=== PATIENT | male | born 1990 | race Asian ===

== ENCOUNTER 2019-04-22 07:27 | Emergency (ER) | payer SELFPAY ==
[~2019-04-22] VITALS: Ht 172.7 cm; Wt 63.5 kg
[2019-04-22] MEDS ORDERED: Lidocaine 1% 10mg/ml/Epi 0.005mg/ml 30ml vial INJ ONE (07:45)
[2019-04-22] MEDS ORDERED: Tetanus/Diptheria/Pertussis IM ONE (07:45)
--- NOTE | 2019-04-22 07:55 | NUR ---
ED Nurse Note: MD at bedside. Pt being taken to CT.
[2019-04-22 08:00] VITALS: BP 107/70
--- NOTE | 2019-04-22 08:00 | NUR ---
ED Nurse Note: Pt walked into ED w/ friend from home. Pt had laceration L side of head, unable to remember what happened. Friend found him at home after syncope, unknown how long for. Pt has 0/10 pain, no nausea, pt drowsy, a&ox4, eyes 2 mm PERRLA present. Pt set up on monitor.
[2019-04-22 08:06] LABS: BASOPHILS % (AUTO) 0.4 % (0.0-2.0); EOSINOPHILS % (AUTO) 0.2 % (0.0-3.0); HEMOGLOBIN 13.5 G/DL (14.2-18.0); LYMPHOCYTES % (AUTO) 16.1 % (20.0-45.0); MEAN CORPUSCULAR VOLUME 87 FL (80-99); MONOCYTES % (AUTO) 9.5 % (1.0-10.0); NEUTROPHILS % (AUTO) 73.8 % (45.0-75.0); PLATELET COUNT 192 K/UL (150-450); RED BLOOD COUNT 4.57 M/UL (4.70-6.10); WHITE BLOOD COUNT 6.8 K/UL (4.8-10.8)
[2019-04-22 08:10] LABS: ANION GAP 13 mmol/L (5-15); BLOOD UREA NITROGEN 22 mg/dL (7-18); CALCIUM 9.2 MG/DL (8.5-10.1); CARBON DIOXIDE 27 MMOL/L (21-32); CHLORIDE 101 MMOL/L (98-107); CREATININE 0.9 MG/DL (0.55-1.30); POTASSIUM 3.6 MMOL/L (3.5-5.1); SODIUM 141 MMOL/L (136-145)
--- NOTE | 2019-04-22 08:15 | Emergency Room Report ---
History of Present Illness General Chief Complaint: Altered Mental Status Source: Patient, Friend Present Illness HPI 28-year-old male presents with laceration to the left eyebrow, occurred 2 days ago, patient has been smoking some drug, he reports left head pain no aggravating leaving factors severity is mild, achy in nature, friend brings patient in for evaluation of his laceration. Allergies: Coded Allergies: No Known Allergies (Unverified , 04/22/19) Patient History Limited by: medical condition - Under the influence Past Medical History: see triage record Social History: Reports: drug use Reviewed Nursing Documentation: PMH: Agreed; PSxH: Agreed Nursing Documentation-[facility] Past Medical History: No Stated History Review of Systems All Other Systems: limited - Under the influence Physical Exam Vital Signs Date Time Temp Pulse Resp B/P (MAP) Pulse Ox O2 Delivery O2 Flow Rate FiO2 04/22/19 07:32 98.1 79 16 106/68 (81) 99 Room Air Sp02 EP Interpretation: reviewed, normal General Appearance: well appearing, no apparent distress, alert Head: normocephalic, other - 3 cm laceration above the left eyebrow Eyes: bilateral eye PERRL, bilateral eye EOMI ENT: uvula midline, moist mucus membranes Neck: supple, thyroid normal, supple/symm/no masses Respiratory: lungs clear, no respiratory distress, no retraction, no accessory muscle use Cardiovascular #1: normal peripheral pulses, regular rate, rhythm, no edema, no gallop, no murmur Gastrointestinal: non tender, soft, no guarding, no rebound Musculoskeletal: normal inspection Neurologic: alert, responsive, other - mildly confused Psychiatric: mood/affect normal Skin: no rash, warm/dry Procedures Critical Care Time Critical Care Time Given the critical condition in which the patient arrived, the patient was immediately assessed by myself and the nurse, and cardiac monitoring initiated due to the potential for rapid decompensation of the patient's clinical condition. During the course of the patient's stay, I spent a considerable amount of time at the bedside performing serial re-evaluations of the patient's hemodynamic and clinical status because of the recognized potential threat to life or limb in this condition. I then had a chance to review not only all of the available current laboratory and radiographic studies obtained today, but I also reviewed old records available to me at the time. Additionally, any ancillary information available including psychiatric specialist records were reviewed. Sequential vital signs were obtained. Critical Care time of 32 minutes was performed exclusive of billable procedures. Laceration/Wound Repair Laceration/Wound Repair : Consent: Verbal Wound Location: head Wound's Depth, Shape: superficial Wound Length (cm): 3 Wound Explored: clean Irrigated w/ Saline (ccs): 100 Betadine Prep?: Yes Anesthesia: Lidocaine w/ Epi Volume Anesthetic (ccs): 5 Wound Debrided: minimal Wound Repaired With: sutures Suture Size/Type: 5:0 Number of Sutures: 6 Patient Tolerated: Well Complications: None Medical Decision Making Diagnostic Impression: Primary Impression: Eyebrow laceration Qualified Codes: S01.112A - Laceration without foreign body of left eyelid and periocular area, initial encounter Additional Impressions: Drug abuse Spontaneous intraparenchymal intracranial hemorrhage, acute ER Course 28-year-old male presents with acute intoxication of unknown drug, patient is mildly altered however able to answer questions appropriately, he endorses smoking some drugs will not state what it was, friend is at bedside Differential diagnosis includes closed head injury, intracranial hemorrhage, drug abuse Laceration repaired, Tdap given, 1 L NS given Patient found to have an intracranial hemorrhage spoke with [facility] Dr. Carranza Who will accept patient Patient monitored multiple times, protecting airway. Patient remains stable will transfer patient to [facility] Laboratory Tests Test 04/22/19 07:30 04/22/19 08:30 White Blood Count 6.8 K/UL (4.8-10.8) Red Blood Count 4.57 M/UL (4.70-6.10) L Hemoglobin 13.5 G/DL (14.2-18.0) L Hematocrit 40.0 % (42.0-52.0) L Mean Corpuscular Volume 87 FL (80-99) Mean Corpuscular Hemoglobin 29.5 PG (27.0-31.0) Mean Corpuscular Hemoglobin Concent 33.7 G/DL (32.0-36.0) Red Cell Distribution Width 12.0 % (11.6-14.8) Platelet Count 192 K/UL (150-450) Mean Platelet Volume 7.0 FL (6.5-10.1) Neutrophils (%) (Auto) 73.8 % (45.0-75.0) Lymphocytes (%) (Auto) 16.1 % (20.0-45.0) L Monocytes (%) (Auto) 9.5 % (1.0-10.0) Eosinophils (%) (Auto) 0.2 % (0.0-3.0) Basophils (%) (Auto) 0.4 % (0.0-2.0) Sodium Level 141 MMOL/L (136-145) Potassium Level 3.6 MMOL/L (3.5-5.1) Chloride Level 101 MMOL/L (98-107) Carbon Dioxide Level 27 MMOL/L (21-32) Anion Gap 13 mmol/L (5-15) Blood Urea Nitrogen 22 mg/dL (7-18) H Creatinine 0.9 MG/DL (0.55-1.30) Estimate Glomerular Filtration Rate > 60 mL/min (>60) Glucose Level 160 MG/DL (74-106) H Calcium Level 9.2 MG/DL (8.5-10.1) Total Bilirubin 1.1 MG/DL (0.2-1.0) H Direct Bilirubin 0.3 MG/DL (0.0-0.3) Aspartate Amino Transferase (AST) 103 U/L (15-37) H Alanine Aminotransferase (ALT) 63 U/L (12-78) Alkaline Phosphatase 52 U/L (46-116) Total Protein 8.3 G/DL (6.4-8.2) H Albumin 4.2 G/DL (3.4-5.0) Globulin 4.1 g/dL Albumin/Globulin Ratio 1.0 (1.0-2.7) Prothrombin Time 11.1 SEC (9.30-11.50) Prothrombin Time INR 1.0 (0.9-1.1) PTT 26 SEC (23-33) Urine Opiates Screen Negative (NEGATIVE) Urine Barbiturates Screen Negative (NEGATIVE) Phencyclidine (PCP) Screen Negative (NEGATIVE) Urine Amphetamines Screen Positive (NEGATIVE) H Urine Benzodiazepines Screen Negative (NEGATIVE) Urine Cocaine Screen Negative (NEGATIVE) Urine Marijuana (THC) Screen Negative (NEGATIVE) CT/MRI/US Diagnostic Results CT/MRI/US Diagnostic Results : Impression Final Report EXAM: CT Head Without Intravenous Contrast CLINICAL HISTORY: PAIN TECHNIQUE: Axial computed tomography images of the head/brain without intravenous contrast. Coronal and sagittal images were obtained and reviewed. CTDI is 60 mGy and DLP is 1274 mGy-cm. One or more of the following dose reduction techniques were used: automated exposure control, adjustment of the mA and/or kV according to patient size, use of iterative reconstruction technique. COMPARISON: No relevant prior studies available. FINDINGS: Brain: 14 x 11 x 9 mm parenchymal hyperdensity in the left frontal lobe, concerning for a parenchymal hematoma/contusion. No associated mass effect, midline shift, or cerebral herniation. Remainder of the brain parenchyma appears unremarkable. Ventricles: Unremarkable. No ventriculomegaly. Bones/joints: Unremarkable. No depressed skull fracture. Soft tissues: Left forehead and periorbital soft tissue swelling. Sinuses: Mucosal opacification of the left frontal sinus. Remaining visualized paranasal sinuses appear clear. No sinus air-fluid levels. Mastoid air cells: Unremarkable as visualized. No mastoid effusion. IMPRESSION: 1. 14 x 11 x 9 mm parenchymal hyperdensity in the left frontal lobe, concerning for a parenchymal hematoma/contusion. No associated mass effect, midline shift, or cerebral herniation. 2. Left forehead and periorbital soft tissue swelling. 3. Mucosal opacification of the left frontal sinus. Radiologist: Shaji Brice MD Electronically Signed: 04/22/19 09:15 Study ready at 08:30 and initial results transmitted at 09:15 Communications: Clear Time Type Notes Call Doctor Intracranial Hemorrhage Last Vital Signs Date Time Temp Pulse Resp B/P (MAP) Pulse Ox O2 Delivery O2 Flow Rate FiO2 04/22/19 07:32 98.1 79 16 106/68 (81) 99 Room Air Disposition: XFER SHT-TRM HOSP Condition: Serious Scripts No Active Prescriptions or Reported Meds Additional Instructions: The patient was provided with discharge instructions, notified to follow-up with a primary care doctor and or specialist in the next 24-48 hours, and to return to the ED if they have worsening of their symptoms. Please note that this report is being documented using [employer] technology. This can lead to erroneous entry secondary to incorrect interpretation by the dictating instrument. PLEASE HAVE SUTURES REMOVED 04/27/2018 Dwayne Connell MD Apr 22, 2019 08:15
[2019-04-22 08:21] LABS: ALANINE AMINOTRANSFERASE 63 U/L (12-78); ALBUMIN 4.2 G/DL (3.4-5.0); ALKALINE PHOSPHATASE 52 U/L (46-116); ASPARTATE AMINO TRANSFERASE 103 U/L (15-37); BILIRUBIN,TOTAL 1.1 MG/DL (0.2-1.0)
[2019-04-22 08:27] LABS: BILIRUBIN,DIRECT 0.3 MG/DL (0.0-0.3)
--- NOTE | 2019-04-22 08:44 | NUR ---
ED Nurse Note: Dr Connell notified ST elevation on 3 lead. He states no new orders.
--- NOTE | 2019-04-22 09:16 | Diagnostic Imaging Report ---
EXAM: CT Head Without Intravenous Contrast CLINICAL HISTORY: PAIN TECHNIQUE: Axial computed tomography images of the head/brain without intravenous contrast. Coronal and sagittal images were obtained and reviewed. CTDI is 60 mGy and DLP is 1274 mGy-cm. One or more of the following dose reduction techniques were used: automated exposure control, adjustment of the mA and/or kV according to patient size, use of iterative reconstruction technique. COMPARISON: No relevant prior studies available. FINDINGS: Brain: 14 x 11 x 9 mm parenchymal hyperdensity in the left frontal lobe, concerning for a parenchymal hematoma/contusion. No associated mass effect, midline shift, or cerebral herniation. Remainder of the brain parenchyma appears unremarkable. Ventricles: Unremarkable. No ventriculomegaly. Bones/joints: Unremarkable. No depressed skull fracture. Soft tissues: Left forehead and periorbital soft tissue swelling. Sinuses: Mucosal opacification of the left frontal sinus. Remaining visualized paranasal sinuses appear clear. No sinus air-fluid levels. Mastoid air cells: Unremarkable as visualized. No mastoid effusion. IMPRESSION: 1. 14 x 11 x 9 mm parenchymal hyperdensity in the left frontal lobe, concerning for a parenchymal hematoma/contusion. No associated mass effect, midline shift, or cerebral herniation. 2. Left forehead and periorbital soft tissue swelling. 3. Mucosal opacification of the left frontal sinus. <MYCVCSECTION> Communications: 04/22/19 09:19 Call Doctor Regarding Intracranial Hemorrhage, called Dr. Grider on 04/22 09:19 (-08:00)
--- NOTE | 2019-04-22 09:19 | Diagnostic Imaging Report ---
EXAM: CT Maxillofacial Without Intravenous Contrast CLINICAL HISTORY: PAIN TECHNIQUE: Axial computed tomography images of the face without intravenous contrast. CTDI is 24 mGy and DLP is 542 mGy-cm. One or more of the following dose reduction techniques were used: automated exposure control, adjustment of the mA and/or kV according to patient size, use of iterative reconstruction technique. Coronal reformatted images were created and reviewed. COMPARISON: Noncontrast CT of the head obtained the same date FINDINGS: Bones/joints: No visible fracture in the facial bones, nasal bones, maxilla, or mandible. Soft tissues: Left forehead and periorbital soft tissue swelling. Orbits: Unremarkable. Bony orbits appear intact. Bilateral globes and intraconal soft tissues appear unremarkable. Sinuses: Mucosal opacification of the left frontal sinus and the left frontoethmoidal recess. Remaining paranasal sinuses are clear. No air- fluid levels. IMPRESSION: 1. Left forehead and periorbital soft tissue swelling. No facial bone fractures identified. 2. Mucosal opacification of the left frontal sinus and the left frontoethmoidal recess. Remaining paranasal sinuses are clear.
[2019-04-22 10:35] VITALS: BP 110/75
--- NOTE | 2019-04-22 10:35 | NUR ---
ED Nurse Note: Report given to Dwayne KING at [facility].
--- NOTE | 2019-04-22 10:37 | NUR ---
ER DISCHARGE NOTE: Patient is cleared to be transferred per ERMD, pt is aox4, drowsy, on room air, with stable vital signs. , pt was able to verbalize understanding, pt iv R ac. pt is able to ambulate with steady gait. ambulance took all belongings.
== END 2019-04-22 10:35 | disposition short-term general hospital (02) ==
LOC: EMR 07:52
DX: S01.112A Laceration without foreign body of left eyelid and periocular area, initial encounter (principal); F19.10 Other psychoactive substance abuse, uncomplicated; I62.9 Nontraumatic intracranial hemorrhage, unspecified; X58.XXXA Exposure to other specified factors, initial encounter; Y92.9 Unspecified place or not applicable; Z23 Encounter for immunization
CPT/HCPCS: 12013; 36415; 70450; 70486; 80053; 80307; 82248; 85025; 85610; 85730; 90471; 90715; 96360; 99291; J7030

== ENCOUNTER 2019-04-26 13:13 | Emergency (ER) | payer SELFPAY ==
[~2019-04-26] VITALS: Ht 167.6 cm; Wt 60.8 kg
--- NOTE | 2019-04-26 13:20 | NUR ---
ED Nurse Note: Patient arrived to ED to have stitches removed from head after fall last week. AxO x 4, no s/s of acute distress. Bed in lowest position.
[2019-04-26 13:30] VITALS: BP 115/68
--- NOTE | 2019-04-26 14:16 | Emergency Room Report ---
History of Present Illness General Chief Complaint: Wound Recheck/Suture Removal Source: Patient Present Illness HPI 28-year-old male with no significant past medical history here requesting removal of sutures that were placed in his left eyebrow 1 week ago. Patient denies any new injury, headache and dizziness, fever and chills at this time. Denies any pus drainage from the site of the repair. Has no other complaints. Allergies: Coded Allergies: No Known Allergies (Unverified , 04/22/19) Patient History Past Medical History: see triage record Past Surgical History: unable to obtain Pertinent Family History: none Immunizations: UTD Reviewed Nursing Documentation: PMH: Agreed; PSxH: Agreed Nursing Documentation-[facility] Past Medical History: No Stated History Review of Systems All Other Systems: negative except mentioned in HPI Physical Exam Vital Signs Date Time Temp Pulse Resp B/P (MAP) Pulse Ox O2 Delivery O2 Flow Rate FiO2 04/26/19 13:17 97.3 79 16 115/68 (84) 97 Room Air Sp02 EP Interpretation: reviewed, normal General Appearance: well appearing, no apparent distress Head: normocephalic, atraumatic ENT: hearing grossly normal, normal voice Neck: full range of motion, supple Respiratory: lungs clear, no respiratory distress, no wheezing, speaking full sentences Cardiovascular #1: no edema, no murmur Gastrointestinal: soft Genitourinary: no CVA tenderness Musculoskeletal: normal inspection Neurologic: alert, oriented Psychiatric: normal inspection Skin: other - Healed and repaired laceration left eyebrow Lymphatic: no adenopathy Medical Decision Making PA Attestation All my diagnosis and treatment plans were reviewed ad discussed with my supervising physician Dr. Spencer Diagnostic Impression: Primary Impression: Encounter for removal of sutures ER Course 28-year-old male with no significant past medical history here requesting removal of sutures that were placed in his left eyebrow 1 week ago. Patient denies any new injury, headache and dizziness, fever and chills at this time. Denies any pus drainage from the site of the repair. Has no other complaints. Ddx considered but are not limited to : Superficial laceration, deep laceration , tendon involvement with laceration, laceration with foreign body Vital signs: are WNL, pt. is afebrile H&PE are most consistent with: Encounter for removal of sutures ORDERS: None ED INTERVENTIONS: Total of 6 sutures were removed without any complication. DISCHARGE: At this time pt. is stable for d/c to home. Will provide printed patient care instructions, and any necessary prescriptions. Care plan and follow up instructions have been discussed with the patient prior to discharge. Last Vital Signs Date Time Temp Pulse Resp B/P (MAP) Pulse Ox O2 Delivery O2 Flow Rate FiO2 04/26/19 13:17 97.3 79 16 115/68 (84) 97 Room Air Disposition: HOME, SELF-CARE Condition: Stable Scripts No Active Prescriptions or Reported Meds Referrals: NOT CHOSEN IPA/MD,REFERRING (PCP) Patient Instructions: Wound Check Cahnning Jefferson Apr 26, 2019 14:16
[2019-04-26 14:22] VITALS: BP 115/68
--- NOTE | 2019-04-26 14:22 | NUR ---
ER DISCHARGE NOTE: Patient cleared for DC by Channing ROYAL. Patient AxO x 4, VSS, no s/s of acute distress. ID band removed. Patient verbalized understanding of DC instructions. Patient can ambulate with steady gait and took all belongings.
== END 2019-04-26 14:22 | disposition home or self-care (01) ==
LOC: EMR 13:55
DX: Z48.02 Encounter for removal of sutures (principal)
CPT/HCPCS: 99281